=== PATIENT | female | born 1980 | race Caucasian/White ===

== ENCOUNTER 2024-01-17 09:39 | Emergency (ER) | payer OTHER ==
[~2024-01-17] VITALS: Ht 162.6 cm; Wt 100.0 kg
[2024-01-17 09:44] VITALS: TEMP 97.8
[2024-01-17 10:39] LABS: APPEARANCE,URINE CLEAR (CLEAR); BILIRUBIN,URINE NEGATIVE (NEGATIVE); COLOR,URINE YELLOW (YELLOW); GLUCOSE, URINE (UA) >=1000 mg/dL (NEGATIVE); KETONES,URINE NEGATIVE (NEGATIVE); LEUKOCYTE ESTERASE ,URINE NEGATIVE (NEGATIVE); NITRATE,URINE NEGATIVE (NEGATIVE); OCCULT BLOOD,URINE NEGATIVE (NEGATIVE); PROTEIN,URINE NEGATIVE (NEGATIVE); SPECIFIC GRAVITIY, URINE 1.036 (1.003-1.030); UROBILINOGEN,URINE <=1.0 mg/dL (<=1.0)
[2024-01-17 10:43] LABS: BACTERIA,URINE None Seen /HPF (None Seen); RBC,URINE None Seen /HPF (0-2); SQUAMOUS EPITHELIAL CELL,UR Many /LPF (None Seen); WBC,URINE None Seen /HPF (0-5)
[2024-01-17 10:52] LABS: COVID AG,FIA SOURCE NASAL SWAB
[2024-01-17] MEDS: ONDANSETRON HCL 4 MG/2 ML VIAL IM ONE (11:04)
[2024-01-17] MEDS: PHENOBARB/HYOSCY/ATROPINE/SCOP 5 ML UDCUP ELIXIR PO ONE (11:04)
[2024-01-17] MEDS: MAG HYDROX/ALUMINUM HYD/SIMETH ES 30 ML SUSPENSION UDCUP PO ONE (11:04)
[2024-01-17] MEDS: HYDROmorphone HCL 2 MG/ML SYRINGE IM ONE (11:04)
[2024-01-17 11:11] LABS: BASOPHILS % (AUTO) 0.3 % (0.0-2.0); EOSINOPHILS % (AUTO) 3.9 % (1.0-6.0); HEMATOCRIT 26.2 % (36-46); HEMOGLOBIN 7.9 g/dL (12.0-16.0); LYMPHOCYTES # (AUTO) 2.9 K/uL (1.0-4.8); LYMPHOCYTES % (AUTO) 34.4 % (22.0-44.0); MEAN CORPUSCULAR HEMOGLOBIN 18.8 pg (26.0-34.0); MEAN CORPUSCULAR HGB CONC 30.3 G/dL (31.0-37.0); MEAN CORPUSCULAR VOLUME 62 fL (80-100); MONOCYTES # (AUTO) 0.8 K/uL (0.1-1.0); MONOCYTES % (AUTO) 9.4 % (2.0-9.0); NEUTROPHILS # (AUTO) 4.4 K/uL (1.8-7.7); PLATELET COUNT (AUTO) 445 K/uL (150-450); RED BLOOD CELL COUNT(AUTO) 4.22 MIL/uL (4.00-5.20); RED CELL DISTRIBUTION WIDTH 21.5 % (11.5-14.5); WHITE BLOOD COUNT (AUTO) 8.4 K/uL (4.5-11.0)
[2024-01-17 11:23] LABS: ANION GAP 9 mmol/L (8-16); CALCIUM, TOTAL 8.4 mg/dL (8.8-10.5); CARBON DIOXIDE 25 mmol/L (22-29); CHLORIDE 103 mmol/L (98-107); CREATININE 0.78 mg/dL (0.60-1.30); GLOMERULAR FILTR. RATE CALC > 60 mL/min (>60); GLUCOSE,RANDOM 193 mg/dL (70-110); POTASSIUM 3.6 mmol/L (3.5-5.1); SODIUM SERUM 137 mmol/L (136-145); UREA NITROGEN, BLOOD 16 mg/dL (7-18)
[2024-01-17 11:26] LABS: SARS-COV2 (COVID) ANTIGEN,FIA Negative (Negative)
[2024-01-17 11:29] LABS: ALANINE AMINOTRANSFERASE 21 U/L (12-78); ALBUMIN 2.9 g/dL (3.4-5.0); ALKALINE PHOSPHATASE 110 U/L (46-116); ASPARTATE AMINOTRANSFERASE 17 U/L (15-37); BILIRUBIN,TOTAL 0.2 mg/dL (0.1-1.0); LIPASE < 10 U/L (16-77); TOTAL PROTEIN, SERUM 6.9 g/dL (6.4-8.2)
[2024-01-17 11:30] LABS: TROPONIN I-HIGH SENSITIVITY 11 ng/L (<51)
[2024-01-17 11:31] LABS: INFLUENZA TYPE A NEGATIVE FOR TYPE A (NEGATIVE); INFLUENZA TYPE B NEGATIVE FOR TYPE B (NEGATIVE)
[2024-01-17 11:36] VITALS: BP 138/84; PULSE 70; RESP 16
[2024-01-17] MEDS ORDERED: ONDA-104 PO (11:44)
[2024-01-17] MEDS ORDERED: TRAM50TA5 PO (11:44)
[2024-01-17] MEDS ORDERED: OMEP20 PO (11:44)
== END 2024-01-17 12:47 | disposition home or self-care (01) ==
LOC: EMS 09:39
DX: K21.9 Gastro-esophageal reflux disease without esophagitis (principal); M54.50 Low back pain, unspecified; E11.65 Type 2 diabetes mellitus with hyperglycemia; K74.60 Unspecified cirrhosis of liver; D64.9 Anemia, unspecified; Z90.49 Acquired absence of other specified parts of digestive tract; Z20.822 Contact with and (suspected) exposure to COVID-19
CPT/HCPCS: 99284; 87426; 80048; 80076; 81001; 82962; 83690; 84484; 85025; 87804; 36415; 96372; J1170; J2405

== ENCOUNTER 2024-02-01 15:26 | Emergency (ER) | payer OTHER ==
[~2024-02-01] VITALS: Ht 162.6 cm; Wt 94.1 kg
[~2024-02-01 15:26] MED LIST: OMEP20 PO; ONDA-104 PO; TRAM50TA5 PO
[2024-02-01] MEDS ORDERED: LEVO100T13 PO (15:32)
[2024-02-01] MEDS ORDERED: INSU3INS3 SQ (15:32)
[2024-02-01] MEDS ORDERED: DULO-113 PO (15:32)
[2024-02-01] MEDS ORDERED: FURO20TA4 PO (15:32)
[2024-02-01] MEDS ORDERED: GABA600T10 PO (15:32)
[2024-02-01] MEDS ORDERED: [UNRECOGNIZED DRUG - CODE] IH (15:32)
[2024-02-01] MEDS ORDERED: HYDR-4584 PO (15:32)
[2024-02-01] MEDS ORDERED: INSU100V36 SQ (15:32)
[2024-02-01] MEDS ORDERED: LISI30TA4 PO (15:32)
[2024-02-01] MEDS ORDERED: OMEP20CA12 PO (15:32)
[2024-02-01 15:33] VITALS: TEMP 98.4
[2024-02-01 15:46] LABS: GLUCOMETER DEV NAME(LOC) ER.7; GLUCOSE,POINT OF CARE 321 MG/DL (70-110)
[2024-02-01] MEDS ORDERED: SULF-261 PO (17:25)
[2024-02-01] MEDS ORDERED: IBUP-1492 PO (17:25)
[2024-02-01] MEDS ORDERED: CEPH-558 PO (17:25)
[2024-02-01] MEDS: CefTRIAXone SODIUM 1 GM/VIAL IM ONE (17:28)
[2024-02-01] MEDS: LIDOCAINE/PF 1% 2 ML VIAL IM ONE (17:28)
[2024-02-01] MEDS ORDERED: LACT10SO10 PO (17:28)
[2024-02-01 17:42] VITALS: BP 136/71; PULSE 80; RESP 16
== END 2024-02-01 18:12 | disposition home or self-care (01) ==
LOC: EMS 15:26
DX: L03.213 Periorbital cellulitis (principal); E11.9 Type 2 diabetes mellitus without complications; K21.9 Gastro-esophageal reflux disease without esophagitis; Z79.4 Long term (current) use of insulin
CPT/HCPCS: 99283; 82962; 96372; J0696; J3490

== ENCOUNTER 2024-03-01 11:29 | Emergency (ER) | payer OTHER ==
[~2024-03-01] VITALS: Ht 162.6 cm; Wt 94.1 kg
[~2024-03-01 11:29] MED LIST changes: +CEPH-558 PO; +DULO-113 PO; +FURO20TA4 PO; +GABA-1404 PO; +HYDR-4584 PO; +IBUP-1492 PO; +INSU100V36 SQ; +INSU3INS3 SQ; +LACT10SO10 PO; +LEVO100T13 PO; +LISI30TA4 PO; -OMEP20 PO; +OMEP20CA12 PO; -ONDA-104 PO; +SULF-261 PO; -TRAM50TA5 PO; +[UNRECOGNIZED DRUG - CODE] IH
[2024-03-01 11:33] VITALS: TEMP 98.2
[2024-03-01] MEDS ORDERED: ALBU18HF12 IH (11:56)
[2024-03-01] MEDS: IBUPROFEN 600 MG TABLET PO ONE (11:57)
[2024-03-01] MEDS ORDERED: PERCT PO (12:51)
[2024-03-01] MEDS ORDERED: IBUP-1492 PO (12:51)
[2024-03-01 13:02] VITALS: BP 154/76; PULSE 90; RESP 14; O2SAT 98
== END 2024-03-01 13:03 | disposition home or self-care (01) ==
LOC: EMS 11:29
DX: S93.401A Sprain of unspecified ligament of right ankle, initial encounter (principal); Y04.8XXA Assault by other bodily force, initial encounter; Y93.89 Activity, other specified; Y92.89 Other specified places as the place of occurrence of the external cause; Y99.8 Other external cause status
CPT/HCPCS: 99284; 73562-TC; 73610-TC; Z7502; Z7610

== ENCOUNTER 2024-07-23 07:47 | Emergency (ER) | payer OTHER ==
[~2024-07-23] VITALS: Ht 154.9 cm; Wt 93.2 kg
[~2024-07-23 07:47] MED LIST changes: +ALBU0.8311 NEB; +ALBU18HF12 IH; +ATOR40TA71 PO; -CEPH-558 PO; +DOXY-354 PO; -DULO-113 PO; +DULO-114 PO; +FLUT50BL IH; +METO-391 PO; +MIRT-142 PO; -OMEP20CA12 PO; +PERCT PO; +PRAZ1 PO; +PRED-729 PO; -SULF-261 PO
[2024-07-23] MEDS ORDERED: BUPR-344 PO (08:01)
[2024-07-23] MEDS ORDERED: CARV3.1231 PO (08:01)
[2024-07-23] MEDS ORDERED: INSLAN SQ (08:01)
[2024-07-23 08:28] LABS: BASOPHILS % (AUTO) 0.5 % (0.0-2.0); HEMATOCRIT 28.6 % (36-46); HEMOGLOBIN 8.4 g/dL (12.0-16.0); LYMPHOCYTES # (AUTO) 1.9 K/uL (1.0-4.8); LYMPHOCYTES % (AUTO) 14.4 % (22.0-44.0); MEAN CORPUSCULAR HEMOGLOBIN 17.7 pg (26.0-34.0); MEAN CORPUSCULAR HGB CONC 29.3 G/dL (31.0-37.0); MEAN CORPUSCULAR VOLUME 60 fL (80-100); MONOCYTES # (AUTO) 1.4 K/uL (0.1-1.0); MONOCYTES % (AUTO) 10.1 % (2.0-9.0); NEUTROPHILS # (AUTO) 9.8 K/uL (1.8-7.7); PLATELET COUNT (AUTO) 471 K/uL (150-450); RED BLOOD CELL COUNT(AUTO) 4.74 MIL/uL (4.00-5.20); RED CELL DISTRIBUTION WIDTH 20.8 % (11.5-14.5); WHITE BLOOD COUNT (AUTO) 13.5 K/uL (4.5-11.0)
[2024-07-23] MEDS: DiphenhydrAMINE HCL 50 MG/ML VIAL IVP ONE (08:31)
[2024-07-23] MEDS: METOCLOPRAMIDE HCL 5 MG/ML 2 ML VIAL IVP ONE (08:31)
[2024-07-23] MEDS: KETOROLAC TROMETHAMINE 30 MG/ML VIAL IVP ONE (08:31)
[2024-07-23] MEDS: FAMOTIDINE 20 MG/2 ML VIAL IVP ONE (08:31)
[2024-07-23] MEDS: MORPHINE SULFATE 2 MG/ML SYRINGE IVP ONE (08:32)
[2024-07-23 08:55] LABS: ALBUMIN 3.4 g/dL (3.4-5.0); BILIRUBIN,DIRECT 0.1 mg/dL (0.00-0.20); BILIRUBIN,TOTAL 0.6 mg/dL (0.1-1.0); CALCIUM, TOTAL 8.8 mg/dL (8.8-10.5); CREATININE 1.07 mg/dL (0.60-1.30); POTASSIUM 4.1 mmol/L (3.5-5.1); TOTAL PROTEIN, SERUM 7.3 g/dL (6.4-8.2)
[2024-07-23 08:57] LABS: TROPONIN I-HIGH SENSITIVITY 9 ng/L (<51)
[2024-07-23] MEDS: AMPICILLIN SODIUM/SULBACTAM NA 3 GM in SODIUM CHLORIDE 0.9% 100 ML IV ONE (08:58)
[2024-07-23 09:04] LABS: RBC MORPHOLOGY COMMENT ABNORMAL RBC MORPH
[2024-07-23] MEDS: INSULIN REGULAR, HUMAN 100 UNITS/ML IVP ONE (09:12)
[2024-07-23] MEDS ORDERED: ONDA-104 PO (10:56)
[2024-07-23] MEDS ORDERED: AMOX-457 PO (10:56)
[2024-07-23 11:03] VITALS: BP 100/52; PULSE 85; RESP 18; TEMP 98.6; O2SAT 98
[2024-07-23] MEDS ORDERED: IBUP-1492 PO (11:26)
[2024-07-23] MEDS ORDERED: ACET-3385 PO (11:26)
== END 2024-07-23 12:25 | disposition home or self-care (01) ==
LOC: EMS 07:48
DX: K08.89 Other specified disorders of teeth and supporting structures (principal); E11.65 Type 2 diabetes mellitus with hyperglycemia; R11.2 Nausea with vomiting, unspecified; I50.9 Heart failure, unspecified; K21.9 Gastro-esophageal reflux disease without esophagitis; Z79.4 Long term (current) use of insulin; Z90.49 Acquired absence of other specified parts of digestive tract; Z79.899 Other long term (current) drug therapy
CPT/HCPCS: 99285; 96375; 96365; 71045; 80048; 80076; 82550; 83690; 83880; 84484; 84703; 85025; 36415; 82962; 93005; J1885; J1200; J3490; J1815; J2765; J2270; J0295; J7050

== ENCOUNTER 2024-12-30 15:19 | Emergency (ER) | payer OTHER ==
[~2024-12-30] VITALS: Ht 162.6 cm; Wt 89.1 kg
[~2024-12-30 15:19] MED LIST changes: -ALBU0.8311 NEB; +BUPR-344 PO; -DOXY-354 PO; -DULO-114 PO; -FLUT50BL IH; -HYDR-4584 PO; +HYDR-5256 PO; +INSLAN SQ; -INSU3INS3 SQ; -LACT10SO10 PO; -MIRT-142 PO; +ONDA-104 PO; -PERCT PO; -PRAZ1 PO; -PRED-729 PO; -[UNRECOGNIZED DRUG - CODE] IH
[2024-12-30] MEDS ORDERED: INSU100I26 SQ (16:37)
[2024-12-30] MEDS ORDERED: DICL100G60 TP (16:37)
[2024-12-30] MEDS ORDERED: FERR325T23 PO (16:37)
[2024-12-30] MEDS ORDERED: FLUT16H NASAL (16:37)
[2024-12-30] MEDS ORDERED: TRAZ-252 PO (16:37)
[2024-12-30] MEDS ORDERED: FAMO40TA7 PO (16:37)
[2024-12-30] MEDS ORDERED: DULO60CA98 PO (16:37)
[2024-12-30] MEDS ORDERED: VALS160T31 PO (16:37)
[2024-12-30] MEDS ORDERED: BUSP15TA3 PO (16:37)
[2024-12-30] MEDS ORDERED: ASPI-1198 PO (16:37)
[2024-12-30] MEDS ORDERED: [UNRECOGNIZED DRUG - CODE] PO (16:37)
[2024-12-30] MEDS ORDERED: FLUT1BLS13 PO (16:37)
[2024-12-30] MEDS ORDERED: CETI10TA58 PO (16:37)
[2024-12-30] MEDS: SODIUM CHLORIDE 0.9% 1,000 ML IV ONE (17:34)
[2024-12-30 17:42] LABS: PLATELET COUNT (AUTO) 246 K/uL (150-450); RED BLOOD CELL COUNT(AUTO) 4.35 MIL/uL (4.00-5.20); RED CELL DISTRIBUTION WIDTH 17.6 % (11.5-14.5); WHITE BLOOD COUNT (AUTO) 9.1 K/uL (4.5-11.0)
[2024-12-30 17:51] LABS: CALCIUM, TOTAL 8.4 mg/dL (8.8-10.5); CREATININE 0.66 mg/dL (0.60-1.30); GLOMERULAR FILTR. RATE CALC > 60 mL/min (>60); GLUCOSE,RANDOM 233 mg/dL (70-110); SODIUM SERUM 140 mmol/L (136-145); UREA NITROGEN, BLOOD 12 mg/dL (7-18)
[2024-12-30 18:00] LABS: PLATELET MORPHOLOGY COMMENT LARGE PLTS PRESENT; RBC MORPHOLOGY COMMENT NORMAL RBC MORPH
[2024-12-30] MEDS ORDERED: MEDR5TAB5 PO (20:08)
[2024-12-30 20:22] VITALS: BP 117/88; PULSE 67; RESP 12; O2SAT 98
== END 2024-12-30 20:23 | disposition home or self-care (01) ==
LOC: EMS 15:19
DX: N93.8 Other specified abnormal uterine and vaginal bleeding (principal); E11.9 Type 2 diabetes mellitus without complications; K21.9 Gastro-esophageal reflux disease without esophagitis; N89.8 Other specified noninflammatory disorders of vagina; Z79.4 Long term (current) use of insulin; Z79.51 Long term (current) use of inhaled steroids; Z79.899 Other long term (current) drug therapy; Z79.82 Long term (current) use of aspirin; Z90.49 Acquired absence of other specified parts of digestive tract
CPT/HCPCS: 99284; 96360; 76830; 76856; 96361; 80048; 84702; 85025; 86850; 86900; 86901; 36415; J7030

== ENCOUNTER 2025-02-26 16:19 | Emergency (ER) | payer OTHER ==
[~2025-02-26] VITALS: Ht 162.6 cm; Wt 89.1 kg
[~2025-02-26 16:19] MED LIST changes: +ASPI-1198 PO; -BUPR-344 PO; +BUSP15TA3 PO; +CETI10TA58 PO; +DICL100G60 TP; +DULO60CA73 PO; +FAMO40TA7 PO; +FERR325T23 PO; +FLUT16H NASAL; +FLUT1BLS13 PO; -IBUP-1492 PO; -INSLAN SQ; +INSU100I26 SQ; -LISI30TA4 PO; +MEDR5TAB5 PO; -ONDA-104 PO; +TRAZ-252 PO; +VALS160T31 PO; +[UNRECOGNIZED DRUG - CODE] PO
[2025-02-26] MEDS: HYDROCODONE/ACETAMINOPHEN 5-325 MG TABLET PO ONE (18:53)
[2025-02-26 22:16] VITALS: BP 134/77; PULSE 76; RESP 18; TEMP 98.3; O2SAT 96
== END 2025-02-26 22:18 | disposition home or self-care (01) ==
LOC: EMS 16:19
DX: S63.501A Unspecified sprain of right wrist, initial encounter (principal); M25.521 Pain in right elbow; E11.9 Type 2 diabetes mellitus without complications; K21.9 Gastro-esophageal reflux disease without esophagitis; F12.90 Cannabis use, unspecified, uncomplicated; Z90.49 Acquired absence of other specified parts of digestive tract; Z79.4 Long term (current) use of insulin; Z79.51 Long term (current) use of inhaled steroids; Z79.82 Long term (current) use of aspirin; Z79.899 Other long term (current) drug therapy; Z87.09 Personal history of other diseases of the respiratory system; Y04.0XXA Assault by unarmed brawl or fight, initial encounter; Y93.89 Activity, other specified; Y92.89 Other specified places as the place of occurrence of the external cause; Y99.8 Other external cause status
CPT/HCPCS: 29105; 70450; 71250; 72125; 72131; 82962; 99284

== ENCOUNTER 2025-05-28 14:50 | Inpatient (IN) | payer OTHER ==
[~2025-05-28] VITALS: Ht 162.6 cm; Wt 87.3 kg
[2025-05-28 15:18] LABS: COVID AG,FIA SOURCE NASAL SWAB
[2025-05-28 15:48] LABS: INFLUENZA TYPE A NEGATIVE FOR TYPE A (NEGATIVE); INFLUENZA TYPE B NEGATIVE FOR TYPE B (NEGATIVE)
[2025-05-28 16:29] LABS: SARS-COV2 (COVID) ANTIGEN,FIA Positive (Negative)
[2025-05-28] MEDS: SODIUM CHLORIDE 0.9% 1,000 ML IV ONE (17:03)
[2025-05-28 17:06] LABS: PLATELET COUNT (AUTO) 292 K/uL (150-450); RED BLOOD CELL COUNT(AUTO) 3.79 MIL/uL (4.00-5.20); RED CELL DISTRIBUTION WIDTH 13.7 % (11.5-14.5); WHITE BLOOD COUNT (AUTO) 5.1 K/uL (4.5-11.0)
[2025-05-28 17:23] LABS: ASPARTATE AMINOTRANSFERASE 80.0 U/L (15-37); TOTAL PROTEIN, SERUM 7.0 g/dL (6.4-8.2)
[2025-05-28 17:26] LABS: CALCIUM, TOTAL 8.5 mg/dL (8.8-10.5); CREATININE 0.88 mg/dL (0.60-1.30); GLOMERULAR FILTR. RATE CALC > 60 mL/min (>60); SODIUM SERUM 137 mmol/L (136-145); TROPONIN I-HIGH SENSITIVITY 16 ng/L (<51); UREA NITROGEN, BLOOD 13 mg/dL (7-18)
[2025-05-28 17:28] LABS: GLUCOSE,RANDOM 457 mg/dL (70-110)
[2025-05-28 17:53] LABS: APPEARANCE,URINE CLEAR (CLEAR); GLUCOSE, URINE (UA) >=1000 mg/dL (NEGATIVE); LEUKOCYTE ESTERASE ,URINE NEGATIVE (NEGATIVE); NITRATE,URINE NEGATIVE (NEGATIVE); OCCULT BLOOD,URINE LARGE (NEGATIVE); SPECIFIC GRAVITIY, URINE 1.032 (1.003-1.030)
[2025-05-28 18:11] LABS: SQUAMOUS EPITHELIAL CELL,UR Rare /LPF (None Seen)
[2025-05-28] MEDS ORDERED: ALBUTEROL SULFATE 2.5 MG/0.5 ML NEB SOLUTION NEB PRN ×2 (21:45)
[2025-05-28] MEDS ORDERED: IPRATROPIUM BROMIDE 0.5 MG/2.5 ML NEB SOLUTION NEB PRN ×2 (21:45)
[2025-05-28 22:25] VITALS: BP 147/83; PULSE 98; RESP 18; TEMP 97.9; O2SAT 98
[2025-05-28 22:31] LABS: GLUCOMETER DEV NAME(LOC) ER.7; GLUCOSE,POINT OF CARE 244 MG/DL (70-110)
[2025-05-28] MEDS ORDERED: DEXTROSE 50%-WATER 25 GM/50 ML SYRINGE IVP PRN (23:00)
[2025-05-28] MEDS: GABAPENTIN 300 MG CAPSULE PO ONE (23:32)
[2025-05-28] MEDS: LEVOFLOXACIN 750 MG/D5% WATER 150 ML IV SCH (23:32)
[2025-05-28] MEDS: INSULIN LISPRO 100 UNITS/ML SQ PRN (23:34)
[2025-05-28] MEDS: INSULIN GLARGINE,HUM.REC.ANLOG 100 UNITS/ML SQ SCH (23:34)
[2025-05-29] MEDS: ONDANSETRON HCL 4 MG/2 ML VIAL IVP PRN (01:19)
[2025-05-29 04:20] VITALS: BP 115/84; PULSE 92; RESP 18; TEMP 98.6; O2SAT 99
[2025-05-29] MEDS: LEVOTHYROXINE SODIUM 100 MCG TABLET PO SCH (06:30)
[2025-05-29 06:51] LABS: PLATELET COUNT (AUTO) 280 K/uL (150-450); RED BLOOD CELL COUNT(AUTO) 3.81 MIL/uL (4.00-5.20); RED CELL DISTRIBUTION WIDTH 13.7 % (11.5-14.5); WHITE BLOOD COUNT (AUTO) 4.9 K/uL (4.5-11.0)
[2025-05-29 07:18] LABS: CALCIUM, TOTAL 8.2 mg/dL (8.8-10.5); CREATININE 0.66 mg/dL (0.60-1.30); GLOMERULAR FILTR. RATE CALC > 60 mL/min (>60); GLUCOSE,RANDOM 235 mg/dL (70-110); SODIUM SERUM 136 mmol/L (136-145); UREA NITROGEN, BLOOD 9 mg/dL (7-18)
[2025-05-29 08:00] VITALS: BP 143/82; PULSE 100; RESP 20; TEMP 98.2; O2SAT 99
[2025-05-29] MEDS ORDERED: POTASSIUM CHL 10 MEQ/WATER 50 ML IV PRN (08:15)
[2025-05-29] MEDS: FERROUS SULFATE 325 MG EC TABLET PO SCH (08:42)
[2025-05-29] MEDS: METOPROLOL SUCCINATE 50 MG ER TABLET PO SCH (08:42)
[2025-05-29] MEDS: POTASSIUM CHLORIDE 20 MEQ ER TABLET PO PRN (08:42)
[2025-05-29] MEDS: VALSARTAN 160 MG TABLET PO SCH (08:42)
[2025-05-29] MEDS: DULoxetine HCL 60 MG CAPSULE PO SCH (08:42)
[2025-05-29] MEDS: FLUTICASONE/VILANTEROL 200-25 MCG/INH INHALER [14] IH SCH (08:43)
[2025-05-29] MEDS: ASPIRIN 81 MG CHEWABLE TABLET PO SCH (08:47)
[2025-05-29] MEDS: FUROSEMIDE 20 MG TABLET PO SCH (08:51)
[2025-05-29 15:51] LABS: GLUCOSE,POINT OF CARE 282 MG/DL (70-110)
[2025-05-29 15:51] LABS: GLUCOSE,POINT OF CARE 220 MG/DL (70-110)
[2025-05-29 15:51] LABS: GLUCOMETER DEV NAME(LOC) 6N.2C; GLUCOSE,POINT OF CARE 218 MG/DL (70-110)
[2025-05-29 16:00] VITALS: BP 147/86; PULSE 82; RESP 20; TEMP 98.6; O2SAT 99
[2025-05-29] MEDS: GABAPENTIN 300 MG CAPSULE PO ONE (16:30)
[2025-05-29 20:00] VITALS: BP 139/75; PULSE 85; RESP 18; TEMP 97.9; O2SAT 97
[2025-05-29] MEDS: GABAPENTIN 300 MG CAPSULE PO SCH (21:08)
[2025-05-29] MEDS: ATORVASTATIN CALCIUM 40 MG TABLET PO SCH (21:08)
[2025-05-29 21:45] LABS: GLUCOMETER DEV NAME(LOC) 6N.2C; GLUCOSE,POINT OF CARE 276 MG/DL (70-110)
[2025-05-29 21:45] LABS: GLUCOMETER DEV NAME(LOC) 6N.2C; GLUCOSE,POINT OF CARE 318 MG/DL (70-110)
[2025-05-30 04:00] VITALS: BP 140/79; PULSE 90; RESP 18; TEMP 98; O2SAT 99
[2025-05-30 06:01] LABS: GLUCOSE,POINT OF CARE 325 MG/DL (70-110)
[2025-05-30 06:15] LABS: PLATELET COUNT (AUTO) 302 K/uL (150-450); RED BLOOD CELL COUNT(AUTO) 3.66 MIL/uL (4.00-5.20); RED CELL DISTRIBUTION WIDTH 13.6 % (11.5-14.5); WHITE BLOOD COUNT (AUTO) 7.7 K/uL (4.5-11.0)
[2025-05-30 06:28] LABS: CALCIUM, TOTAL 8.3 mg/dL (8.8-10.5); CREATININE 0.67 mg/dL (0.60-1.30); GLOMERULAR FILTR. RATE CALC > 60 mL/min (>60); GLUCOSE,RANDOM 363 mg/dL (70-110); SODIUM SERUM 133 mmol/L (136-145); UREA NITROGEN, BLOOD 14 mg/dL (7-18)
[2025-05-30 07:27] VITALS: BP 141/77; PULSE 93; RESP 18; TEMP 98.1; O2SAT 98
[2025-05-30] MEDS ORDERED: LEVO750T68 PO (09:53)
[2025-05-30] MEDS ORDERED: DEXA4 PO (09:53)
[2025-05-30 12:15] VITALS: BP 138/71; PULSE 90; TEMP 97.9
== END 2025-05-30 12:50 | disposition home or self-care (01) | DRG 177 ==
LOC: EMS 14:50 → EDH 18:55 → 6N 22:44
PROVIDERS: ADMIT Internal Medicine; ATTEND Internal Medicine
DX: U07.1 COVID-19 (principal); J12.82 Pneumonia due to coronavirus disease 2019; I50.9 Heart failure, unspecified; I11.0 Hypertensive heart disease with heart failure; E03.9 Hypothyroidism, unspecified; E11.65 Type 2 diabetes mellitus with hyperglycemia; K21.9 Gastro-esophageal reflux disease without esophagitis; E78.5 Hyperlipidemia, unspecified; Z78.9 Other specified health status; Z79.4 Long term (current) use of insulin; Z87.09 Personal history of other diseases of the respiratory system
CPT/HCPCS: 71045; 80048; 80076; 81001; 82962; 83036; 83690; 83880; 84132; 84484; 85025; 87040; 87804; 93005; 96360; 99285; J1815; J1956; J2405; J8540; 36415-L1; 36415-TC